=== PATIENT | male | born 1990 | race African-American/Black ===

== ENCOUNTER 2018-02-10 01:26 | Emergency (ER) | payer SELFPAY ==
[~2018-02-10] VITALS: Ht 175.3 cm; Wt 118.0 kg
[2018-02-10 01:48] VITALS: BP 128/87
[2018-02-10] MEDS ORDERED: SULFAMETHOXAZOLE/TRIMETHOPRIM 800/160MG TABLET PO ONE (03:15)
== END 2018-02-10 03:30 | disposition home or self-care (01) ==
LOC: ER 01:26
DX: L03.113 Cellulitis of right upper limb (principal)
CPT/HCPCS: 99283